=== PATIENT | male | born 1995 | race Caucasian/White ===

== ENCOUNTER 2019-04-11 15:48 | Emergency (ER) | payer OTHER ==
[~2019-04-11] VITALS: Ht 177.8 cm; Wt 90.0 kg
[2019-04-11 15:54] VITALS: BP 136/81; TEMP 97.8
[2019-04-11 17:13] VITALS: PULSE 80
== END 2019-04-11 17:13 | disposition home or self-care (01) ==
LOC: COL.ER 15:48
DX: S90.32XA Contusion of left foot, initial encounter (principal); W22.8XXA Striking against or struck by other objects, initial encounter